=== PATIENT | male | born 1960 | race Caucasian/White ===

== ENCOUNTER 2024-07-12 09:57 | Emergency (ER) | payer OTHER, SELFPAY ==
--- NOTE | 2024-07-12 09:59 | ED.ANIMALBIT ---
HPI - Animal Bite General Chief Complaint: Animal Bite Stated Complaint: Cat Bite Time Seen by Provider: 07/12/24 09:59 Source: patient Mode of arrival: ambulatory Limitations: no limitations History of Present Illness HPI narrative: Diogenes is a 63 year old male patient presenting to the clinic today with c/o a cat bite/scratches to his bilateral forearms and hands. 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 He wash the wounds with soap and water and applied Neosporin. His tetanus is not up today. Related Data Allergies Allergy/AdvReac Type Severity Reaction Status Date / Time acetaminophen [From Percocet] AdvReac Other Verified 07/12/24 10:16 amoxicillin [From Augmentin] AdvReac Gastrointestinal Verified 07/12/24 10:16 Upset clavulanic acid AdvReac Gastrointestinal Verified 07/12/24 10:16 [From Augmentin] Upset codeine AdvReac Gastrointestinal Verified 07/12/24 10:16 Upset hydromorphone [From Dilaudid] AdvReac Other Verified 07/12/24 10:16 oxycodone [From Percocet] AdvReac Other Verified 07/12/24 10:16 Review of Systems Review of Systems: Pertinent positives per HPI. Patient denies any fever, chills, rash, headache, visual changes, dizziness, cough, runny nose, sore throat, shortness of breath, chest pain, palpitations, nausea, vomiting, diarrhea, constipation, abdominal pain, or any urinary issues. PMFSH Comments At the time of my signature, I reviewed and agree with the nursing past medical, surgical, social, and family history. There is no relevant family history pertinent to the patient complaint. Exam Narrative: General: Well-developed, well nourished, in no apparent distress Head: Normocephalic, atraumatic. Cardio: Regular rate and rhythm, s1 and s2 normal, no murmur appreciated. Resp: Clear to auscultation bilaterally, no rhonchi, rales, wheezing or rubs. Integumentary: [place], warm, and dry, multiple scratches to the forearms with two cat bites-1 bite to the left hand and 1 bite in between the webbing of the thumb and index finger of the right hand Course Course Emergency Course: Portions of this record may have been created with voice recognition software. Level of Care: Express Care Visit Vital Signs Vital signs: Vital Signs Temperature 36.4 C 07/12/24 10:13 Pulse Rate 66 07/12/24 10:13 Respiratory Rate 16 07/12/24 10:13 Blood Pressure 130/85 07/12/24 10:13 Pulse Oximetry 100 07/12/24 10:13 Temperature 36.4 C 07/12/24 10:13 Pulse Rate 66 07/12/24 10:13 Respiratory Rate 16 07/12/24 10:13 Blood Pressure 130/85 07/12/24 10:13 Pulse Oximetry 100 07/12/24 10:13 Vital signs reviewed MDM - Animal Bite MDM Narrative Medical decision making narrative: At the time of visit patient is resting comfortably on the exam table. Patient appears to be nontoxic. Medications given: Tdap 0.5 mL IM Plan: I suspect patient has cat bites/scratches that do not appear to be infected at this time. Will place on prophylactic antibiotics cefuroxime and metronidazole. Tetanus was updated in the clinic today. Supportive measures were discussed with the patient and they voiced understanding discharge instructions and agrees to treatment plan. Return precautions reviewed Differential Diagnosis Differential diagnosis: Likely bite by animal, cat bite, dog bite and rabies contact Discharge Plan Discharge Clinical Impression: Cat scratch Cat bite Qualifiers: Encounter type: initial encounter Qualified Code(s): W55.01XA - Bitten by cat, initial encounter Patient Disposition: Home, Self-Care Condition: Stable Instructions: Antibiotic Form, Animal Bite (ED) Additional Instructions: Tdap given in the clinic today. Wash twice daily with soap and water Keep wound analilia
[2024-07-12 10:13] VITALS: BP 130/85; PULSE 66; RESP 16; TEMP 36.4; O2SAT 100
[2024-07-12] MEDS: TETANUS,DIPHTHERIA,AC PERTUSSIS ADULT (0.5 ML) BOOSTRIX IM (10:27)
== END 2024-07-12 10:51 | disposition home or self-care (01) ==
PROVIDERS: Emergency Provider Nurse Practitioner Family
DX: S50.812A Abrasion of left forearm, initial encounter (principal); S50.811A Abrasion of right forearm, initial encounter; S61.452A Open bite of left hand, initial encounter; S61.451A Open bite of right hand, initial encounter; W55.01XA Bitten by cat, initial encounter; Z23 Encounter for immunization; Z96.653 Presence of artificial knee joint, bilateral
CPT/HCPCS: 90471; 90715; 99203; G0463